=== PATIENT | female | born 1985 | race Caucasian/White ===

== ENCOUNTER 2020-01-08 20:21 | Inpatient (IN) ==
[2020-01-08] MEDS ORDERED: *HR* LORazepam 1 MG TABLET PO PRN (21:13)
[2020-01-08] MEDS ORDERED: Acetaminophen 325 MG TABLET PO PRN (21:13)
[2020-01-08] MEDS ORDERED: Haloperidol Lactate 5 MG/ML VIAL IM PRN (21:13)
[2020-01-08] MEDS ORDERED: MOM Conc 10 ML UD.LIQ PO PRN (21:13)
[2020-01-08] MEDS ORDERED: *HR* LORazepam 2 MG/ML VIAL IM PRN (21:13)
[2020-01-08] MEDS ORDERED: haloperidoL 5 MG TABLET PO PRN (21:13)
[2020-01-08] MEDS ORDERED: Mag Hydrox/Al Hydrox/Simeth 30 ML UDC PO PRN (21:13)
[2020-01-08] MEDS: hydrOXYzine pamoate 25 MG CAPSULE PO PRN (21:28)
[2020-01-08] MEDS: traZODone 50 MG TABLET PO PRN (21:28)
[2020-01-09] MEDS: Lurasidone 20 MG TABLET PO SCH (17:30)
[2020-01-09] MEDS: traZODone 50 MG TABLET PO PRN (20:55)
[2020-01-09] MEDS: lamoTRIgine 100 MG TABLET PO SCH (20:55)
[2020-01-09] MEDS: clonazePAM 0.5 MG TABLET PO SCH (20:56)
[2020-01-09] MEDS ORDERED: Topiramate 25 MG TABLET PO SCH (21:00)
[2020-01-10] MEDS: Levothyroxine 25 MCG TABLET PO SCH (08:03)
[2020-01-10] MEDS ORDERED: Lurasidone 20 MG TABLET PO SCH (09:00)
[2020-01-10] MEDS: lamoTRIgine 100 MG TABLET PO SCH ×2 (09:15→20:47)
[2020-01-10] MEDS: clonazePAM 0.5 MG TABLET PO SCH ×3 (09:15→20:47)
[2020-01-10] MEDS: Lurasidone 20 MG TABLET PO SCH (09:15)
[2020-01-10] MEDS: traZODone 50 MG TABLET PO PRN (20:47)
[2020-01-10] MEDS: hydrOXYzine pamoate 25 MG CAPSULE PO PRN (20:47)
[2020-01-10] MEDS ORDERED: Topiramate 100 MG TABLET PO SCH (21:00)
[2020-01-11] MEDS: Levothyroxine 25 MCG TABLET PO SCH (05:59)
[2020-01-11] MEDS: Lurasidone 20 MG TABLET PO SCH (08:44)
[2020-01-11] MEDS: lamoTRIgine 100 MG TABLET PO SCH (08:45)
[2020-01-11] MEDS: clonazePAM 0.5 MG TABLET PO SCH ×2 (08:45→15:52)
[2020-01-11 09:09] VITALS: BP 106/66
== END 2020-01-11 18:10 | disposition home or self-care (01) | DRG 885 ==
LOC: 1ANU 20:22
PROVIDERS: ADMIT Psychiatry & Neurology Psychiatry; ATTEND Psychiatry & Neurology Psychiatry